=== PATIENT | male | born 1960 | race Caucasian/White ===

== ENCOUNTER 2017-01-13 22:24 | Emergency (ER) | payer MEDICARE ==
[~2017-01-13 22:24] MED LIST: CARISPRODOL AD; HYDR-85 PO
[2017-01-13] MEDS ORDERED: SODIUM CHLORIDE 0.9% 1,000 ML IV ONE (22:45)
[2017-01-13] MEDS ORDERED: CARI350 PO (22:56)
[2017-01-13] MEDS ORDERED: ROSU10 PO (22:56)
[2017-01-14] MEDS ORDERED: FAMOTIDINE 10 MG/ML 2 ML VIAL IVP ONE (01:30)
[2017-01-14] MEDS ORDERED: MethylPREDNISolone SOD SUCC 125 MG/2 ML VIAL IVP ONE (01:30)
[2017-01-14] MEDS ORDERED: DiphenhydrAMINE HCL 50 MG/ML VIAL IVP ONE (01:30)
[2017-01-14] MEDS ORDERED: KETOROLAC TROMETHAMINE 30 MG/ML VIAL IVP ONE (01:45)
[2017-01-14 05:56] VITALS: BP 127/68
== END 2017-01-14 05:59 | disposition home or self-care (01) ==
LOC: EMS 22:26
DX: T78.2XXA Anaphylactic shock, unspecified, initial encounter (principal); R06.02 Shortness of breath; J02.9 Acute pharyngitis, unspecified; E78.00 Pure hypercholesterolemia, unspecified; Z88.0 Allergy status to penicillin
CPT/HCPCS: 93005; 96361; 96374; 96375; 99285; J1200; J1885; J2930; J3490; J7030

== ENCOUNTER 2023-08-04 23:41 | Emergency (ER) | payer MEDICARE, OTHER ==
[~2023-08-04] VITALS: Ht 167.6 cm; Wt 68.2 kg
[~2023-08-04 23:41] MED LIST changes: +CARI-493 PO; -CARISPRODOL AD; -HYDR-85 PO; +ROSU10TA72 PO
[2023-08-04 23:52] VITALS: TEMP 99.8
[2023-08-05] MEDS ORDERED: MORPHINE SULFATE 2 MG/ML SYRINGE IVP ONE (00:30)
[2023-08-05] MEDS ORDERED: OXYC5 PO (01:02)
[2023-08-05 01:45] VITALS: BP 126/74; PULSE 75; RESP 17
== END 2023-08-05 02:07 | disposition home or self-care (01) ==
LOC: EMS 23:44
DX: S52.502A Unspecified fracture of the lower end of left radius, initial encounter for closed fracture (principal); E78.00 Pure hypercholesterolemia, unspecified; G89.29 Other chronic pain; M54.9 Dorsalgia, unspecified; Z98.890 Other specified postprocedural states; Z88.0 Allergy status to penicillin; W18.39XA Other fall on same level, initial encounter; Y93.89 Activity, other specified; Y92.89 Other specified places as the place of occurrence of the external cause; Y99.8 Other external cause status
CPT/HCPCS: 99284; 73090; 73110; 73130; 29125; 96374; J2270